=== PATIENT | female | born 1965 | race Caucasian/White ===

== ENCOUNTER → 2018-03-13 14:34 | Outpatient (CLI) | payer MEDICAID, SELFPAY ==
--- NOTE | 2018-03-13 14:38 | BI_ITS ---
MAMMOGRAPHY - BILATERAL SCREENING REASON FOR EXAM: Female, 52 years old. Routine annual screening examination. PERTINENT HISTORY: Non-contributory. Remote left excisional breast biopsy. TECHNIQUE: Digital bilateral breast praveena (3D mammographic acquisition) in the CC and MLO projections. 2-D mediolateral oblique (MLO) and craniocaudad (CC) views of both breasts were obtained. CAD: Full Field Digital Mammography with Computer Added Detection was performed. COMPARISON: Comparison is made with prior study dated December 01, 2016 and October 17, 2015. FINDINGS: Breast Composition: The breasts are heterogeneously dense, which may obscure small masses. There are no dominant masses or suspicious calcifications. There is a 4.8 mm x 5 mm well-defined nodule in the slightly superior lateral aspect of the left breast. Correlation with ultrasound is recommended for further evaluation. No other significant abnormalities are identified. BI/SCREEN MAMM (CAD) W/PRAVEENA BILAT IMPRESSION: 4.8 mm x 5 mm well-defined nodule in the slightly superior lateral aspect of the left breast as described. Correlation with ultrasound is recommended. ASSESSMENT CATEGORY: BIRADS Category 0: Incomplete. Need additional imaging evaluation. A letter regarding these results will be sent to the patient by the facility within 30 days. Approximately 10% of breast cancers are not detected by mammography. A normal mammogram should not delay biopsy of a clinically suspicious abnormality. [id number] Electronically Signed: Amandeep Caro MD at 14:48 EST Tel [phone], Service support ,
== END ==
PROVIDERS: Family Provider Family Medicine; PCP Family Medicine; Visit Provider Family Medicine
DX: Z12.31 Encounter for screening mammogram for malignant neoplasm of breast (principal); N63.20 Unspecified lump in the left breast, unspecified quadrant
CPT/HCPCS: 77063; 77067

== ENCOUNTER → 2018-03-20 15:19 | Outpatient (CLI) | payer MEDICAID, SELFPAY ==
--- NOTE | 2018-03-20 15:29 | US_ITS ---
STUDY: ULTRASOUND BREAST - LEFT REASON FOR EXAM: Female, 52 years old. Abnormal screening mammogram. TECHNIQUE: Axial and longitudinal images of the LEFT breast were performed with a high resolution ultrasound transducer. COMPARISON: Comparison is made with prior mammogram dated March 13, 2018. FINDINGS: LEFT Breast: There is a 5 mm x 4 mm x 3 mm well-defined hypoechoic nodule with a central echogenic density suggestive of a small lymph node. This is seen at the 2:00 position of the breast at 2 cm from the nipple. US/Breast Limited Unilateral IMPRESSION: Findings suggestive of a small lymph node at the 3:00 position of the breast at 2 cm from the nipple. Routine mammographic follow-up is recommended. ASSESSMENT CATEGORY: BIRADS Category 2: Benign. A letter regarding these results will be sent to the patient by the facility within 30 days. Electronically Signed: Amandeep Caro MD at 8:37 EST Tel [phone], Service support ,
== END ==
PROVIDERS: Family Provider Family Medicine; PCP Family Medicine; Referring Provider Family Medicine; Visit Provider Family Medicine
DX: R92.8 Other abnormal and inconclusive findings on diagnostic imaging of breast (principal)
CPT/HCPCS: 76642